=== PATIENT | female | born 1975 | race Caucasian/White ===

== ENCOUNTER → 2019-06-20 13:15 | Outpatient (BNVA) | payer BC, SELFPAY | PROVIDERS: Family Provider Family Medicine; PCP Family Medicine; Visit Provider Nurse Practitioner Family | DX: N39.0 Urinary tract infection, site not specified (principal) | CPT/HCPCS: 81003 ==

== ENCOUNTER 2019-08-05 14:12 | Outpatient (CLI) | payer BC, SELFPAY ==
[2019-08-05 15:01] LABS: Basophils % 0.6 %; Eosinophils % 0.2 %; Hematocrit 43.8 % (37.0-47.0); Hemoglobin 15.3 g/dL (11.5-15.3); Lymphocytes # 1.8 10^3/uL (0.8-4.8); Lymphocytes % 35.9 %; Mean Corpuscular HGB Conc 34.9 g/dL (30.0-36.0); Mean Corpuscular Hemoglobin 32.4 pg (28.0-34.0); Mean Corpuscular Volume 92.8 fL (81-99); Mean Platelet Volume 10.3 fL (7.4-10.4); Monocytes # 0.2 10^3/uL (0.2-0.9); Monocytes % 4.9 %; Neutrophils # 2.8 10^3/uL (1.8-7.7); Neutrophils % 58.2 %; Nucleated Red Blood Cells % 0 %; Platelet Count 256 10^3/cmm (130-400); Red Blood Count 4.72 10^6/uL (4.1-5.3); Red Cell Distribution Width 11.8 % (12.1-15.1); White Blood Count 4.9 10^3/uL (4.0-10.0)
[2019-08-05 15:18] LABS: C Reactive Protein 0.3 mg/L (0.0-4.9); Ferritin 42 ng/mL (15-150); Iron 141 ug/dL (37-145); Lactate Dehydrogenase 181 U/L (135-214); Percent Saturation 40.9 % (20-50); Total Iron Binding Capacity 344 mcg/dl; Unsaturated Iron Binding 203 ug/dL (112-347)
[2019-08-05 15:31] LABS: Vitamin B12 757 pg/mL (232-1245)
[2019-08-05 15:33] LABS: Erythrocyte Sedimentation Rate 9 mm/hr (0-15)
[2019-08-05 16:15] LABS: LAB Peripheral Smear Sent for Review
[2019-08-06 12:01] LABS: Anti-Double Strand DNA AB 1 IU/mL; Jo-1 Antibody <1.0 NEG AI (<1.0 NEG); SM/RNP Antibodies <1.0 NEG AI (<1.0 NEG); SS-B/LA IGG <1.0 NEG AI (<1.0 NEG); Scleroderma Ab(Scl-70) Ab <1.0 NEG AI (<1.0 NEG); Ss-A/Ro Igg <1.0 NEG AI (<1.0 NEG)
== END 2019-08-05 14:13 | disposition home or self-care (01) ==
LOC: LAB 14:15
PROVIDERS: Family Provider Family Medicine; PCP Family Medicine; Visit Provider Family Medicine
DX: D59.1 Other autoimmune hemolytic anemias (principal); R31.0 Gross hematuria
CPT/HCPCS: 80500; 82607; 82728; 83010; 83540; 83550; 83615; 85025; 85045; 85651; 86140; 86225; 86235

== ENCOUNTER → 2021-05-09 14:12 | Outpatient (BNVA) | payer BC, SELFPAY | PROVIDERS: PCP Family Medicine; Referring Provider Family Medicine; Visit Provider Podiatrist Foot & Ankle Surgery | DX: M79.672 Pain in left foot (principal); M79.671 Pain in right foot | CPT/HCPCS: 73630 ==

== ENCOUNTER → 2021-09-22 12:37 | Outpatient (BNVA) | payer BC, SELFPAY | PROVIDERS: PCP Family Medicine; Visit Provider Family Medicine | DX: R50.9 Fever, unspecified (principal) | CPT/HCPCS: 80053; 81000; 85025; 85651; 86140; 87086 ==

== ENCOUNTER → 2021-11-16 09:20 | Outpatient (BNVA) | payer BC, SELFPAY | PROVIDERS: PCP Family Medicine; Visit Provider Family Medicine | DX: Z00.00 Encounter for general adult medical examination without abnormal findings (principal); N39.0 Urinary tract infection, site not specified | CPT/HCPCS: 80053; 81000; 84443; 85025; 86140 ==

== ENCOUNTER → 2022-02-27 13:42 | Outpatient (BNVA) | payer BC, SELFPAY | PROVIDERS: PCP Family Medicine; Visit Provider Family Medicine | DX: R45.4 Irritability and anger (principal); R10.9 Unspecified abdominal pain; G47.00 Insomnia, unspecified; M79.10 Myalgia, unspecified site; R68.89 Other general symptoms and signs; R23.2 Flushing | CPT/HCPCS: 80053; 81003; 82672; 84144; 84403; 84443; 85025; 85651; 86140; 86160; 86162; 86235; 86255; 86376 ==

== ENCOUNTER → 2022-08-15 14:37 | Outpatient (BNVA) | payer BC, SELFPAY | PROVIDERS: PCP Family Medicine; Visit Provider Internal Medicine | DX: R23.2 Flushing (principal); R68.89 Other general symptoms and signs; M79.10 Myalgia, unspecified site; G47.00 Insomnia, unspecified; R10.9 Unspecified abdominal pain; R45.4 Irritability and anger; E87.6 Hypokalemia | CPT/HCPCS: 36415; 72100; 72202; 73120; 81001; 82533; 82550; 82728; 82784; 83516; 83540; 84182; 84443; 85651; 86003; 86008; 86140; 86160; 86200; 86235; 86431; 86618; 86666; 86704; 86757; 86803; 86812; 87077; 87086; 87186; 87340 ==

== ENCOUNTER → 2023-01-19 10:37 | Outpatient (BNVA) | payer OTHER, SELFPAY | PROVIDERS: PCP Family Medicine; Visit Provider Emergency Medicine | DX: R39.9 Unspecified symptoms and signs involving the genitourinary system (principal) | CPT/HCPCS: 81000 ==

== ENCOUNTER → 2023-01-22 19:25 | Outpatient (BNVA) | payer OTHER, SELFPAY | PROVIDERS: PCP Family Medicine; Visit Provider Emergency Medicine | DX: R50.9 Fever, unspecified (principal) | CPT/HCPCS: 81000; 87086 ==

== ENCOUNTER 2023-03-14 17:12 | Outpatient (CLI) | payer OTHER, SELFPAY ==
--- NOTE | 2023-03-14 17:50 | ECG_ITS ---
[facility] Test Date: 2023-03-14 Pat Name: Karen Whitney Department: Room: Gender: Female Voice Over Artist: : 1975 Requested By: Carlos Lopez Order Number: [id number] Reece MD: Josue Robb M.D. Measurements Intervals [place] Rate: 54 P: 36 MA: 158 QRS: 29 QRSD: 86 T: 9 QT: 382 QTc: 364 Interpretive Statements SINUS BRADYCARDIA No previous ECG available for comparison Electronically Signed On 03-15-2023 12:32:03 CDT by Josue Robb M.D. [email or web address]
[2023-03-14 18:43] LABS: Basophils % 0.3 %; Eosinophils % 0.2 %; Hematocrit 42.3 % (36-47); Lymphocytes # 2.9 10^3/uL (0.8-4.8); Lymphocytes % 43.6 %; Mean Corpuscular HGB Conc 31.9 g/dL (30-55); Mean Corpuscular Hemoglobin 31.3 pg (27-33); Mean Corpuscular Volume 97.9 fl (85-98); Mean Platelet Volume 10.5 fL (7.4-10.4); Monocytes # 0.3 10^3/uL (0.2-0.9); Neutrophils # 3.32 10^3/uL (1.8-7.7); Neutrophils % 50.7 %; Nucleated Red Blood Cells % 0 %; Platelet Count 173 10^3/cmm (157-399); Red Blood Count 4.32 10^6/uL (3.85-5.65); Red Cell Distribution Width 12.7 % (12.1-15.1); White Blood Count 6.54 10^3/uL (3.29-11.43)
[2023-03-14 18:49] LABS: Blood Urea Nitrogen 13 mg/dL (6-20); Calcium 9.1 mg/dL (8.5-10.5); Carbon Dioxide 23 mmol/L (22-29); Chloride 101 mmol/L (98-107); Glomerular Filtration Rate 66.5 mL/min (90-130); Glucose 88 mg/dL (65-115); Osmolality Calculated 282 mOsm/kg (285-295); Sodium 136 mmol/L (136-145)
== END 2023-03-14 17:13 | disposition home or self-care (01) ==
PROVIDERS: PCP Family Medicine; Visit Provider Specialist
DX: J38.3 Other diseases of vocal cords (principal); R00.1 Bradycardia, unspecified
CPT/HCPCS: 80048; 85025; 93005

== ENCOUNTER 2023-09-23 13:51 | Outpatient (CLI) | payer OTHER, SELFPAY ==
--- NOTE | 2023-09-23 13:56 | MM_ITS ---
WS: [id number] BILATERAL 3D TOMOSYNTHESIS DIGITAL SCREENING MAMMOGRAPHY WITH CAD CLINICAL INFORMATION: SCREENING HISTORY: Screening mammogram. No current complaints. COMPARISON: 2019 TECHNIQUE: Bilateral CC and MLO views. FINDINGS: Scattered fibroglandular densities bilaterally. No suspicious focal mass, asymmetry, calcifications, or architectural distortion. No evidence of malignancy. A few incidental punctate calcifications. Sta ble nodularity upper outer LEFT breast. MM/[place] [id number] IMPRESSION: BI-RADS: 2-Benign FOLLOW UP: 1 Year Follow-up Recommend return to annual screening mammography.
== END 2023-09-23 13:52 | disposition home or self-care (01) ==
PROVIDERS: PCP Family Medicine; Visit Provider Family Medicine
DX: Z12.31 Encounter for screening mammogram for malignant neoplasm of breast (principal)
CPT/HCPCS: 77063; 77067

== ENCOUNTER 2024-10-15 09:13 | Outpatient (CLI) | payer BC, SELFPAY ==
--- NOTE | 2024-10-15 09:18 | MM_ITS ---
WS: [id number] SCREENING DIGITAL BREAST TOMOSYNTHESIS MAMMOGRAM WITH CAD HISTORY: SCREENING COMPARISON: 04/01/2019, 09/23/2023 Bilateral CC and MLO with tomosynthesis and synthetic mammography submitted. Computer aided detection analyzed. Breast composition: There are scattered areas of fibroglandular density. New ovoid mass of increased density measures 1.6 x 0.9 x 1.2 cm RIGHT breast near 8- 9:00. There is an area of asymmetry in the lateral LEFT breast which may be involuting fibroglandular tissue but needs to be further evaluated with additional spot compression views. MM/MM [facility] tomosynthesis [id number] IMPRESSION: BI-RADS: 0 - Incomplete: Need additional imaging evaluation. FOLLOW UP: Need Additional Imaging RIGHT breast: Spot compression views (CC and MLO). True ML. Ultrasound to follo w if abnormality persists. LEFT breast: Spot compression views (CC and MLO). True ML. Ultrasound to follow if abnormality persists.
== END 2024-10-15 09:14 | disposition home or self-care (01) ==
PROVIDERS: PCP Family Medicine; Visit Provider Family Medicine
DX: Z12.31 Encounter for screening mammogram for malignant neoplasm of breast (principal); R92.323 Mammographic fibroglandular density, bilateral breasts; N63.13 Unspecified lump in the right breast, lower outer quadrant; N63.10 Unspecified lump in the right breast, unspecified quadrant
CPT/HCPCS: 77063; 77067

== ENCOUNTER 2024-11-10 10:39 | Outpatient (CLI) | payer BC, SELFPAY ==
--- NOTE | 2024-11-10 10:43 | MM_ITS ---
WS: [id number] Additional views BILATERAL DIGITAL BREAST TOMOSYNTHESIS MAMMOGRAPHY WITH CAD Bilateral breast ultrasound, limited HISTORY: ABNORMAL MAMMOGRAM COMPARISON: 10/15/2024, 09/23/2023, 04/01/2019 TECHNIQUE: Bilateral spot compression views upper outer quadrant of each breast. Bilateral ML views. Tomosynthesis with CAD. Computer aided detection utilized. Breast composition: There are scattered areas of fibroglandular density. Asymmetry persists which is rounded in the lateral RIGHT breast near 9-10 o'clock at a middle depth. Asymmetry is partially obscured measuring 7 x 11 x 10 mm. Asymmetry in the upper outer quadrant of the LEFT breast slightly improves with spot compression views. There are adjacent benign intramammary lymph nodes. Bilateral breast ultrasound: RIGHT: Ultrasound 9:00 RIGHT breast, 1 cm from the nipple demonstrates 2 adjacent benign cyst with through transmission. The entire complex measures 1.1 x 0.7 x 0.9 cm. No solid component. LEFT: Mildly heterogeneous soft tissue. There is no mass or shadowing identified. MM/MM diag [facility] tomosynthesis [id number] IMPRESSION: BI-RADS: 2 - Benign. FOLLOW UP: 1 Year Follow-up Return to annual screening mammography. Benign cysts RIGHT breast. No abnormali ty LEFT breast.
== END 2024-11-10 10:40 | disposition home or self-care (01) ==
PROVIDERS: PCP Family Medicine; Visit Provider Family Medicine
DX: R92.8 Other abnormal and inconclusive findings on diagnostic imaging of breast (principal); R92.323 Mammographic fibroglandular density, bilateral breasts; R59.0 Localized enlarged lymph nodes; N60.11 Diffuse cystic mastopathy of right breast
CPT/HCPCS: 76642; 77062; G0279